=== PATIENT | male | born 1995 | race Asian ===

== ENCOUNTER 2017-03-18 22:23 | Emergency (ER) | payer BC ==
[2017-03-18 22:28] VITALS: BP 173/76
[2017-03-19] MEDS ORDERED: Ibuprofen TAB* 600 MG PO ONE (01:52)
--- NOTE | 2017-03-19 12:46 | RAD ---
INDICATION: Left knee pain after volleyball injury COMPARISON: None TECHNIQUE: 2 view radiograph of the left knee. FINDINGS: The visualized bones are well-corticated and properly aligned. The joint spaces are properly maintained. There is no radiographic evidence of joint effusion. There is no acute fracture, dislocation or other focal bony abnormality. IMPRESSION: Normal knee radiograph as described above. If the patient's symptoms persist, follow-up imaging is recommended.
--- NOTE | 2017-04-10 22:48 | ED ---
Lower Extremity - HPI Summary HPI Summary: 21 male presents with complaints of left knee pain after an injury that occurred earlier today ~21pm while playing volleyball. Patient states he came down from a jump twisted it. Has been unable to bear weight. Pain has worsened throughout day. Admits to some swelling. Denies bruising, redness, warmth and numbness/tingling. Has not taken any medication. Rest and non weight bearing makes pain better. No otehr injuries or complaints. No PMHx. - History of Current Complaint Chief Complaint: EDExtremityLower Stated Complaint: LEFT LEG/KNEE PAIN Time Seen by Provider: 03/19/17 01:03 Hx Obtained From: Patient Mechanism Of Injury: Twisted Onset of Pain: Immediate, Post Accident Onset/Duration: Worse Since Severity Initially: Moderate Severity Currently: Mild Pain Intensity: 3 Pain Scale Used: 0-10 Numeric Timing: Constant Location: Is Discrete @ - left knee, diffuse Character Of Pain: Sharp, Aching Associated Signs And Symptoms: Positive: Swelling, Knee Pain Aggravating Factor(s): Standing, Ambulation, Weight Bearing Alleviating Factor(s): Rest Able to Bear Weight: No - Allergies/Home Medications Allergies/Adverse Reactions: Allergies Allergy/AdvReac Type Severity Reaction Status Date / Time Peanut-containing Drug Allergy Anaphylatic Verified 03/18/17 22:27 Products Shock PMH/Surg Hx/FS Hx/Imm Hx Endocrine/Hematology History: Denies: Hx Diabetes Cardiovascular History: Denies: Hx Hypertension Respiratory History: Reports: Hx Asthma - Surgical History Surgery Procedure, Year, and Place: none - Immunization History Immunizations Up to Date: Yes Infectious Disease History: Denies: Traveled Outside the [place] in Last 30 Days - Social History Alcohol Use: None Substance Use Type: Reports: None Smoking Status (MU): Never Smoked Tobacco Review of Systems Constitutional: Negative Cardiovascular: Negative Respiratory: Negative Positive: Arthralgia, Myalgia, Decreased ROM, Edema - left knee Skin: Negative Neurological: Negative All Other Systems Reviewed And Are Negative: Yes Physical Exam Triage Information Reviewed: Yes Vital Signs On Initial Exam: Initial Vitals Temp Pulse Resp BP Pulse Ox 97.5 F 115 20 173/76 98 03/18/17 22:27 03/18/17 22:27 03/18/17 22:27 03/18/17 22:27 03/18/17 22:27 Vital Signs Reviewed: Yes Appearance: Positive: Well-Appearing, No Pain Distress, Well-Nourished Skin: Positive: Warm, Skin Color Reflects Adequate Perfusion, Dry, Cold. Negative: Numb, Cyanosis @, Pale, Erythema @ Head/Face: Positive: Normal Head/Face Inspection Eyes: Positive: Conjunctiva Inflammed ENT: Positive: Pharynx normal Neck: Positive: Supple, Nontender Respiratory/Lung Sounds: Positive: Clear to Auscultation, Breath Sounds Present. Negative: Rales, Rhonchi, Wheezes Cardiovascular: Positive: Normal, RRR, Pulses are Symmetrical in both Upper and Lower Extremities - 2+. Negative: Murmur, Rub Musculoskeletal: Positive: Limited @ - with flexion pf left knee over 50 degrees due to pain, same with passive ROM. able to extend. no ecchymosis or edema noted. no siginificant laxity noted on special tests. no crepitus, step off or obvious deformity noted. strenght intact. rest of MSK exam normal, Pain @ - left knee anterior. Negative: Interruption @, Edema Left Neurological: Positive: Normal, Sensory/Motor Intact - sensation intact, Alert, Oriented to Person Place, Time, NV Bundle Intact Distally, Unable to Assess Gait - due to pain of left knee Psychiatric: Positive: Affect/Mood Appropriate Diagnostics - Vital Signs Vital Signs Temp Pulse Resp BP Pulse Ox 03/18/17 22:27 97.5 F 115 20 173/76 98 - Laboratory Lab Statement: Any lab studies that have been ordered have been reviewed, and results considered in the medical decision making process. - Radiology left knee Xray Interpretation: No Acute Changes - normal radiographic findings, if symptoms persist recommend repeat imaging. Radiology Interpretation Completed By: Radiologist Lower Extremity Course/Dx - Course Course Of Treatment: x-ray obtained and negative for fracture, soft tissue swelling and dislocation. no concern for bony findings. possible ligamentous injury. ibuprofen given, patient had relief. given crutches, knee immobilizer. RICE and NSAIDs at home. follow up ortho. aware of worsening signs and symptoms. - Diagnoses Differential Diagnosis/HQI/PQRI: Positive: Contusion, Dislocation, Fracture ( Closed), Sprain, Strain Provider Diagnoses: Left knee sprain Discharge - Discharge Plan Condition: Stable Disposition: HOME Patient Education Materials: Knee Sprain (ED) Referrals: Damion Paulino MD [Medical Doctor] - No Primary Care Phys,NOPCP [Primary Care Provider] - Additional Instructions: Take aleve OR advil to help with pain and inflammation starting tomorrow. You can get this over the counter, take as directed. Take with food to avoid upset stomach. Ice, rest and elevate. Wear knee immobilzer and use crutches to prevent further injury and for support. Refrain from physical activity. Follow up with orthopedics next week for further evaluation of ligamentous injury.
== END 2017-03-19 02:08 | disposition home or self-care (01) ==
LOC: ED 22:23
DX: S83.92XA Sprain of unspecified site of left knee, initial encounter (principal); X50.1XXA Overexertion from prolonged static or awkward postures, initial encounter; Y93.68 Activity, volleyball (beach) (court); Y92.9 Unspecified place or not applicable; J45.909 Unspecified asthma, uncomplicated
CPT/HCPCS: 99282